=== PATIENT | female | born 1940 | race Caucasian/White ===

== ENCOUNTER 2017-06-18 21:39 | Emergency (ER) | payer MEDICARE, BC ==
[2017-06-18] MEDS ORDERED: Sodium Chloride 0.9% 10 ML Syringe FLUSH PRN (22:22)
[2017-06-18] MEDS ORDERED: Lactated Ringers 1,000 ML IV ONE (22:40)
[2017-06-18] MEDS ORDERED: Prochlorperazine 10 MG/2 ML SDV IVPUSH ONE (22:41)
[2017-06-18] MEDS ORDERED: Ketorolac 30 MG/ML SDV IVPUSH ONE (22:41)
[2017-06-18] MEDS ORDERED: diphenhydrAMINE 50 MG/ML SDV IVPUSH ONE (22:42)
--- NOTE | 2017-06-18 22:49 | EDM.PDOC ---
ED HPI GENERAL MEDICAL PROBLEM - General Chief Complaint: Respiratory Problem Stated Complaint: VOMITING / NAUSEA / FEVER / COUGH Time Seen by Provider: 06/18/17 22:35 Source of Information: Reports: Patient, Old Records, RN History Limitations: Reports: No Limitations - History of Present Illness INITIAL COMMENTS - FREE TEXT/NARRATIVE: 77 yo female developed a low grade fever, body aches, and a slightly productive cough yesterday. Today in addition she developed a migraine. She took Imitrex without relief of the migraine. Presents for both of these issues. Says her BP goes up when she has a migraine, and it is normally around 120 systolic as recent as 2 weeks ago. Onset: Gradual Onset Date: 06/17/17 Duration: Hour(s): Location: Reports: Head, Chest, Generalized Quality: Reports: Ache Severity: Moderate Improves with: Reports: None Worsens with: Reports: None Context: Reports: Other (Hx of migraines. Had a flu vaccine. Unknown exposures. ) Associated Symptoms: Reports: Cough, Fever/Chills, Headaches, Other (body aches) . 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 (see below) (Imitrex without relief.) Generalized Pain Score (Numeric/FACES): 9 - Related Data Allergies Allergy/AdvReac Type Severity Reaction Status Date / Time No Known Allergies Allergy Verified 06/18/17 22:19 Home Meds: Home Meds Acetaminophen [Tylenol 8 Hour] 650 mg PO ASDIRECTED 02/12/13 [History] Cyclobenzaprine [Flexeril] 10 mg PO BEDTIME 06/03/16 [History] Omeprazole 20 mg PO DAILY 06/03/16 [History] Propranolol HCl [Inderal LA] 60 mg PO DAILY 06/03/16 [History] SUMAtriptan [Imitrex] 50 mg PO ASDIRECTED PRN 06/03/16 [History] Sertraline [Zoloft] 100 mg PO DAILY 06/03/16 [History] atorvaSTATin [Lipitor] 20 mg PO BEDTIME 06/03/16 [History] rOPINIRole [Requip] 1 mg PO BEDTIME 06/18/17 [History] Oseltamivir [Tamiflu] 75 mg PO BID #10 cap 06/19/17 [Rx] Past Medical History HEENT History: Reports: Allergic Rhinitis, Impaired Vision Cardiovascular History: Reports: High Cholesterol, Hypertension Respiratory History: Reports: Sleep Apnea Gastrointestinal History: Reports: Colon Polyp, GERD Genitourinary History: Reports: None 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: Musculoskeletal History: Reports: Back Pain, Chronic, Fracture, Fibromyalgia, Osteoarthritis, Osteoporosis Neurological History: Reports: Migraines, TIA Psychiatric History: Reports: Anxiety, Depression, Panic Attack, Other (See Below) Other Psychiatric History: insommnia Oncologic (Cancer) History: Reports: Breast - Infectious Disease History Infectious Disease History: Reports: C-Difficile, Measles, Shingles - Past Surgical History GI Surgical History: Reports: Colonoscopy Female Surgical History: Reports: Breast Biopsy, Mastectomy Neurological Surgical History: Reports: None Musculoskeletal Surgical History: Reports: Knee Replacement Oncologic Surgical History: Reports: Mastectomy Social & Family History - Tobacco Use Smoking Status *Q: Never Smoker Second Hand Smoke Exposure: No - Caffeine Use Caffeine Use: Reports: Coffee - Alcohol Use Days Per Week of Alcohol Use: 4 Number of Drinks Per Day: 1 Total Drinks Per Week: 4 - Recreational Drug Use Recreational Drug Use: No ED ROS GENERAL - Review of Systems Review Of Systems: See Below Constitutional: Reports: Fever, Malaise, Fatigue HEENT: Reports: Rhinitis (mild). Denies: Throat Pain Respiratory: Reports: Cough, Sputum. Denies: Shortness of Breath, Wheezing, Pleuritic Chest Pain, Hemoptysis Cardiovascular: Reports: No Symptoms Endocrine: Reports: No Symptoms GI/Abdominal: Reports: No Symptoms : Reports: No Symptoms Musculoskeletal: Reports: Muscle Pain (diffusely) Skin: Reports: No Symptoms Neurological: Reports: No Symptoms Psychiatric: Reports: No Symptoms ED EXAM, GENERAL - Physical Exam Exam: See Below Exam Limited By: No Limitations General Appearance: Alert, WD/WN, No Apparent Distress Eye Exam: Bilateral Eye: Normal Inspection Ears: Normal External Exam, Normal Canal, Hearing Grossly Normal, Normal TMs Ear Exam: Bilateral Ear: Auricle Normal, Canal Normal, TM normal Nose: Normal Inspection, Normal Mucosa, No Blood Throat/Mouth: Normal Inspection, Normal Lips, Normal Oropharynx, Normal Voice, No Airway Compromise Head: Atraumatic, Normocephalic Neck: Normal Inspection, Supple, Non-Tender Respiratory/Chest: No Respiratory Distress, No Accessory Muscle Use, Rhonchi ( scattered). No: Decreased Breath Sounds, Wheezing, Pleural Rub, Accessory Muscle Use Cardiovascular: Regular Rate, Rhythm, No Edema GI/Abdominal: Normal Bowel Sounds, Soft, Non-Tender, No Distention Back Exam: Normal Inspection. No: CVA Tenderness (R), CVA Tenderness (L) Extremities: Normal Inspection, Normal Range of Motion, Non-Tender, No Pedal Edema Neurological: Alert, Oriented, CN II-XII Intact, Normal Cognition, No Motor/ Sensory Deficits Psychiatric: Normal Affect, Normal Mood Skin Exam: Warm, Dry, Intact, Normal Color, No Rash Lymphatic: No Adenopathy EKG INTERPRETATION EKG Date: 06/18/17 Time: 22:25 Rhythm: NSR Rate (Beats/Min): 104 [place]: Normal P-Wave: Present QRS: RBBB ST-T: Normal QT: Normal Comparison: NA - No Prior EKG Course - Vital Signs Text/Narrative:: For her migraine she was given LR 1000 ml IV, Compazine 10 mg IV, Toradol 15 mg IV, and diphenhydramine 25 mg IV Last Recorded V/S: Last Vital Signs Temp 37.5 C 06/18/17 22:50 Pulse 92 06/19/17 00:18 Resp 16 06/19/17 00:18 BP 172/95 H 06/19/17 00:18 Pulse Ox 92 L 06/19/17 00:18 - Orders/Labs/Meds Orders: Active Orders 24 hr Category Date Time Status Cardiac Monitoring [RC] .As Directed Care 06/18/17 22:22 Active EKG Documentation Completion [RC] ASDIRECTED Care 06/18/17 22:22 Active Chest 2V [CR] Stat Exams 06/18/17 23:26 Taken Sodium Chloride 0.9% [Saline Flush] Med 06/18/17 22:22 Active 10 ml FLUSH ASDIRECTED PRN Saline Lock Insert [OM.PC] Routine Oth 06/18/17 22:22 Ordered EKG 12 Lead [EK] Routine Ther 06/18/17 22:22 Ordered Medication Orders Sodium Chloride (Saline Flush) 10 ml FLUSH ASDIRECTED PRN PRN Reason: Keep Vein Open Last Admin: 06/18/17 22:59 Dose: 10 ml Labs: Laboratory Tests 06/18/17 06/18/17 06/19/17 Range/Units 22:42 22:42 00:15 WBC 5.3 (4.5-11.0) K/uL RBC 4.31 (3.30-5.50) M/uL Hgb 12.6 (12.0-15.0) g/dL Hct 37.5 (36.0-48.0) % MCV 87 (80-98) fL MCH 29 (27-31) pg MCHC 34 (32-36) % Plt Count 160 (150-400) K/uL Lactic Acid 1.1 (0.4-2.0) mmol/L C-Reactive Protein 10.31 H (0.0-0.3) mg/dL Meds: Medications Generic Name Dose Route Start Last Admin Trade Name Freq PRN Reason Stop Dose Admin Sodium Chloride 10 ml 06/18/17 22:22 06/18/17 22:59 Saline Flush FLUSH 10 ml ASDIRECTED PRN Administration Keep Vein Open Discontinued Medications Generic Name Dose Route Start Last Admin Trade Name Freq PRN Reason Stop Dose Admin Diphenhydramine HCl 25 mg 06/18/17 22:42 06/18/17 23:04 Benadryl IVPUSH 06/18/17 22:43 25 mg ONETIME ONE Administration Lactated Ringer's 1,000 mls @ 1,000 mls/hr 06/18/17 22:40 06/18/17 22:58 Ringers, Lactated IV 06/18/17 23:39 1,000 mls/hr BOLUS ONE Administration Ketorolac Tromethamine 15 mg 06/18/17 22:41 06/18/17 23:07 Toradol IVPUSH 06/18/17 22:42 15 mg ONETIME ONE Administration Oseltamivir Phosphate 75 mg 06/18/17 23:23 06/18/17 23:29 Tamiflu PO 06/18/17 23:24 75 mg ONETIME ONE Administration Prochlorperazine Edisylate 10 mg 06/18/17 22:41 06/18/17 23:00 Compazine IVPUSH 06/18/17 22:42 10 mg ONETIME ONE Administration - Radiology Interpretation Free Text/Narrative:: CXR-? atelectasis L base Departure - Departure Time of Disposition: 00:39 Disposition: Home, Self-Care 01 Condition: Fair Clinical Impression: Influenza HTN (hypertension) Qualifiers: Hypertension type: unspecified Qualified Code(s): I10 - Essential (primary) hypertension - Discharge Information Prescriptions: Oseltamivir [Tamiflu] 75 mg PO BID #10 cap Referrals: Rosemary Melgar PA [Primary Care Provider] - Forms: ED Department Discharge Additional Instructions: Take Tamiflu every 12 hrs until gone. Take acetaminophen every 4-6 hrs for pain or fever control. Drink ample fluids and rest. Recheck with your doctor or here if not improving or worse. You will need a BP check very soon due to hypertension identified tonight also. - My Orders Last 24 Hours: My Active Orders 06/18/17 22:22 Cardiac Monitoring [RC] .As Directed EKG Documentation Completion [RC] ASDIRECTED Sodium Chloride 0.9% [Saline Flush] 10 ml FLUSH ASDIRECTED PRN Saline Lock Insert [OM.PC] Routine EKG 12 Lead [EK] Routine 06/18/17 23:26 Chest 2V [CR] Stat - Assessment/Plan Last 24 Hours: My Active Orders 06/18/17 22:22 Cardiac Monitoring [RC] .As Directed EKG Documentation Completion [RC] ASDIRECTED Sodium Chloride 0.9% [Saline Flush] 10 ml FLUSH ASDIRECTED PRN Saline Lock Insert [OM.PC] Routine EKG 12 Lead [EK] Routine 06/18/17 23:26 Chest 2V [CR] Stat
[2017-06-18] MEDS ORDERED: Oseltamivir 75 MG Cap PO ONE (23:23)
[2017-06-19 00:20] VITALS: BP 172/95
--- NOTE | 2017-06-19 11:05 | CR ---
Chest 2V HISTORY: Cough COMPARISON: CT chest 2006. FINDINGS: Left mastectomy changes with surgical clips in the left axilla. There is hyperinflation. Th e cardiac size is upper limits of normal. No dense focal infiltrates. Linear scarring or atelectatic changes at the left lung base.
== END 2017-06-19 00:51 | disposition home or self-care (01) ==
LOC: JP.ED 21:39
DX: J10.1 Influenza due to other identified influenza virus with other respiratory manifestations (principal); I10 Essential (primary) hypertension; G43.909 Migraine, unspecified, not intractable, without status migrainosus; F41.9 Anxiety disorder, unspecified; F32.9 Major depressive disorder, single episode, unspecified; E78.00 Pure hypercholesterolemia, unspecified; Z79.899 Other long term (current) drug therapy
CPT/HCPCS: 36415; 71046; 83605; 85027; 86140; 87804; 93005; 96361; 96374; 96375; 99284; A9270; J0780; J1200; J1885; J7050; J7120; 93010

== ENCOUNTER 2017-06-29 09:57 | Emergency (ER) | payer MEDICARE, BC ==
[2017-06-29 10:34] VITALS: BP 178/85
--- NOTE | 2017-06-29 11:08 | EDM.PDOC ---
ED HPI GENERAL MEDICAL PROBLEM - General Chief Complaint: General Stated Complaint: NAUSEA/MUSCLE ACHES Time Seen by Provider: 06/29/17 10:55 Source of Information: Reports: Patient, Old Records, RN History Limitations: Reports: No Limitations - History of Present Illness INITIAL COMMENTS - FREE TEXT/NARRATIVE: 77 yo female presents with a concern about her HTN. It has been running high lately. Has no new sx's related to the high BP. Has not been to the clinic. 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) - Related Data Allergies Allergy/AdvReac Type Severity Reaction Status Date / Time No Known Allergies Allergy Verified 06/18/17 22:19 Home Meds: Home Meds Cyclobenzaprine [Flexeril] 10 mg PO BEDTIME 06/03/16 [History] Omeprazole 20 mg PO DAILY 06/03/16 [History] Propranolol HCl [Inderal LA] 60 mg PO DAILY 06/03/16 [History] SUMAtriptan [Imitrex] 50 mg PO ASDIRECTED PRN 06/03/16 [History] Sertraline [Zoloft] 100 mg PO DAILY 06/03/16 [History] atorvaSTATin [Lipitor] 20 mg PO BEDTIME 06/03/16 [History] HCTZ/Telmisartan [Micardis HCT 12.5-40 MG] 1 tab PO DAILY #30 tab 06/29/17 [Rx] Past Medical History HEENT History: Reports: Allergic Rhinitis, Impaired Vision Cardiovascular History: Reports: High Cholesterol, Hypertension Respiratory History: Reports: Sleep Apnea Gastrointestinal History: Reports: Colon Polyp, GERD Genitourinary History: Reports: 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: Musculoskeletal History: Reports: Back Pain, Chronic, Fracture, Fibromyalgia, Osteoarthritis, Osteoporosis Neurological History: Reports: Migraines, TIA Psychiatric History: Reports: Anxiety, Depression, Panic Attack, Other (See Below) Other Psychiatric History: insommnia Oncologic (Cancer) History: Reports: Breast - Infectious Disease History Infectious Disease History: Reports: Chicken Pox, Measles, Mumps - Past Surgical History GI Surgical History: Reports: Colonoscopy Female Surgical History: Reports: Breast Biopsy, Mastectomy Neurological Surgical History: Reports: None Musculoskeletal Surgical History: Reports: Knee Replacement Other Musculoskeletal Surgeries/Procedures:: bilateral knee replacement Oncologic Surgical History: Reports: Mastectomy Social & Family History - Tobacco Use Smoking Status *Q: Never Smoker Second Hand Smoke Exposure: No - Caffeine Use Caffeine Use: Reports: Coffee - Alcohol Use Days Per Week of Alcohol Use: 4 Number of Drinks Per Day: 1 Total Drinks Per Week: 4 - Recreational Drug Use Recreational Drug Use: No ED ROS GENERAL - Review of Systems Review Of Systems: See Below Constitutional: Reports: No Symptoms HEENT: Reports: No Symptoms Respiratory: Reports: No Symptoms Cardiovascular: Reports: Blood Pressure Problem GI/Abdominal: Reports: No Symptoms : Reports: No Symptoms Musculoskeletal: Reports: No Symptoms Skin: Reports: No Symptoms Neurological: Reports: No Symptoms ED EXAM, GENERAL - Physical Exam Exam: See Below Exam Limited By: No Limitations General Appearance: Alert, WD/WN, No Apparent Distress Eye Exam: Bilateral Eye: Normal Inspection Ears: Normal External Exam, Normal Canal, Hearing Grossly Normal Ear Exam: Bilateral Ear: Auricle Normal, Canal Normal Nose: Normal Inspection, Normal Mucosa, No Blood Throat/Mouth: Normal Inspection, Normal Lips, Normal Oropharynx, Normal Voice, No Airway Compromise Head: Atraumatic, Normocephalic Neck: Normal Inspection, Supple Respiratory/Chest: No Respiratory Distress, Lungs Clear, Normal Breath Sounds, No Accessory Muscle Use Cardiovascular: Regular Rate, Rhythm, No Edema Neurological: Alert, Oriented, CN II-XII Intact, Normal Cognition, No Motor/ Sensory Deficits Psychiatric: Normal Affect, Normal Mood Skin Exam: Warm, Dry, Intact, Normal Color, No Rash Lymphatic: No Adenopathy Course - Vital Signs Last Recorded V/S: Last Vital Signs Temp 35.9 C 06/29/17 10:33 Pulse 67 06/29/17 10:33 Resp 16 06/29/17 10:33 BP 178/85 H 06/29/17 10:33 Pulse Ox 96 06/29/17 10:33 Orthostatic Blood Pressure [ 178/85 Standing] Orthostatic Blood Pressure [ 176/80 Sitting] Orthostatic Blood Pressure [ 192/90 Supine] Departure - Departure Time of Disposition: 11:12 Disposition: Home, Self-Care 01 Condition: Good Clinical Impression: HTN (hypertension) Qualifiers: Hypertension type: unspecified Qualified Code(s): I10 - Essential (primary) hypertension - Discharge Information Prescriptions: HCTZ/Telmisartan [Micardis HCT 12.5-40 MG] 1 tab PO DAILY #30 tab Referrals: Rosemary Melgar PA [Primary Care Provider] - Forms: ED Department Discharge Additional Instructions: Avoid salt. Take Mircardis/HCT one every morning. Call the clinic to schedule a follow up appt and to find out the name of the medicine you reacted to a year ago.
== END 2017-06-29 11:22 | disposition home or self-care (01) ==
LOC: JP.ED 09:57
DX: I10 Essential (primary) hypertension (principal); E78.00 Pure hypercholesterolemia, unspecified; K21.9 Gastro-esophageal reflux disease without esophagitis; F41.9 Anxiety disorder, unspecified; F32.9 Major depressive disorder, single episode, unspecified; Z79.899 Other long term (current) drug therapy
CPT/HCPCS: 99283

== ENCOUNTER 2019-04-12 06:20 | Day surgery (SDC) | payer MEDICARE, BC ==
[2019-04-12] MEDS ORDERED: Lactated Ringers 1,000 ML IV SCH (06:45)
[2019-04-12] MEDS ORDERED: Midazolam 1 MG/ML 2 ML SDV ONE (07:10)
[2019-04-12] MEDS ORDERED: fentaNYL 100 MCG/2 ML SDV ONE (07:10)
[2019-04-12] MEDS ORDERED: Propofol 200 MG/20 ML SDV ONE (07:11)
[2019-04-12 08:52] VITALS: BP 145/62; PULSE 75
--- NOTE | 2019-04-12 15:23 | OR ---
DATE OF PROCEDURE: 04/12/2019 SURGEON: Kelechi Camilo MD PREOPERATIVE DIAGNOSIS: History of colon polyps. POSTOPERATIVE DIAGNOSES: Diverticulosis, 2 small colon polyps 40 cm in right colon, history of colon polyps. PROCEDURE PERFORMED: Colonoscopy to the cecum with biopsy resection of small polyps at 40 cm in right colon. ANESTHESIA: IV anesthesia with monitored anesthesia care. INDICATION: This 79-year-old white female is referred for a colonoscopy because of a history of colon polyps. Her last colonoscopic exam was 3 years ago. I counseled her for the procedure, including risks and alternatives, and she gave her informed consent to proceed. DESCRIPTION OF PROCEDURE: The patient was placed in the left lateral decubitus position. IV anesthesia was administered by the Anesthesia Service. Time-out was held. A rectal exam was performed, which was unremarkable. The flexible video Olympus colonoscope was introduced through her anus, up her rectum, out her colon all the way to the cecum. En route, at 40 cm from the anal verge, we encountered a small polyp which was removed with a few bites of biopsy forceps. We also encountered multiple sigmoid and left colon diverticula. There was no bleeding or inflammation associated with any of them. In the right colon, we saw a small polyp which was removed with a few bites of biopsy forceps. Once the cecum was reached, the scope was slowly withdrawn examining the mucosa throughout. No additional mucosal abnormalities were noted. The scope was retroflexed in the rectum with the distal rectum appearing unremarkable. The scope was straightened and removed. She tolerated the procedure well. Kelechi Camilo MD /[id number]
== END 2019-04-12 09:10 | disposition home or self-care (01) ==
LOC: JP.SDS 06:20
PROVIDERS: ATTEND Surgery
DX: Z12.11 Encounter for screening for malignant neoplasm of colon (principal); K57.30 Diverticulosis of large intestine without perforation or abscess without bleeding; D12.5 Benign neoplasm of sigmoid colon; D12.2 Benign neoplasm of ascending colon; K21.9 Gastro-esophageal reflux disease without esophagitis; G47.33 Obstructive sleep apnea (adult) (pediatric); E78.5 Hyperlipidemia, unspecified; I10 Essential (primary) hypertension; Z86.010 Personal history of colon polyps; Z99.89 Dependence on other enabling machines and devices
CPT/HCPCS: J2250; J2704; J3010; J7120

== ENCOUNTER 2021-03-02 11:47 | Emergency (ER) | payer MEDICARE, BC ==
[2021-03-02] MEDS ORDERED: Lactated Ringers 1,000 ML IV ONE (12:30)
[2021-03-02] MEDS ORDERED: Prochlorperazine 10 MG/2 ML SDV IVPUSH ONE (12:31)
[2021-03-02] MEDS ORDERED: diphenhydrAMINE 50 MG/ML SDV IVPUSH ONE (12:31)
[2021-03-02] MEDS ORDERED: Ketorolac 30 MG/ML SDV IVPUSH ONE (12:31)
--- NOTE | 2021-03-02 12:35 | EDM.PDOC ---
ED HPI GENERAL MEDICAL PROBLEM - General Chief Complaint: Headache Stated Complaint: MIGRAINE Time Seen by Provider: 03/02/21 12:20 Source of Information: Reports: Patient, Old Records, RN History Limitations: Reports: No Limitations - History of Present Illness INITIAL COMMENTS - FREE TEXT/NARRATIVE: 81 yo female presents with what she describes as a migraine that began yester day. She has a pHx of migraine. She has photophobia and nausea. No fever. Is here with her . Tried Imitrex without relief. Onset: Sudden Onset Date: 03/01/21 Duration: Day(s): (1), Constant Location: Reports: Head Quality: Reports: Ache Severity: Severe Improves with: Reports: None Worsens with: Reports: None Context: Reports: Other (see HPI) Associated Symptoms: Reports: Headaches, Nausea/Vomiting, Other (photophobia). 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 (see below) (Imitrex) Headache Pain Score (Numeric/FACES): 9 - Related Data Allergies Allergy/AdvReac Type Severity Reaction Status Date / Time No Known Allergies Allergy Verified 03/02/21 12:14 Home Meds: Home Meds Propranolol HCl [Inderal LA] 60 mg PO DAILY 06/03/16 [History] SUMAtriptan [Imitrex] 50 mg PO ASDIRECTED PRN 06/03/16 [History] Sertraline [Zoloft] 100 mg PO DAILY 06/03/16 [History] atorvaSTATin [Lipitor] 20 mg PO BEDTIME 06/03/16 [History] Acetaminophen [Tylenol] 650 mg PO Q4HR PRN 04/08/19 [History] Gabapentin [Neurontin] 300 mg PO BID 04/08/19 [History] Losartan [Cozaar] 25 mg PO DAILY 04/08/19 [History] Omeprazole 20 mg PO DAILY 03/02/21 [History] Past Medical History HEENT History: Reports: Allergic Rhinitis, Impaired Vision Cardiovascular History: Reports: High Cholesterol, Hypertension Respiratory History: Reports: Sleep Apnea Gastrointestinal History: Reports: Colon Polyp, GERD Genitourinary History: Reports: None 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: Musculoskeletal History: Reports: Back Pain, Chronic, Fracture, Fibromyalgia, Osteoarthritis, Osteoporosis Other Musculoskeletal History: hip replacement Neurological History: Reports: Migraines, TIA Psychiatric History: Reports: Anxiety, Depression, Panic Attack, Other (See Below) Other Psychiatric History: insommnia Oncologic (Cancer) History: Reports: Breast - Infectious Disease History Infectious Disease History: Reports: Chicken Pox - Past Surgical History HEENT Surgical History: Reports: Adenoidectomy, Tonsillectomy Cardiovascular Surgical History: Reports: None GI Surgical History: Reports: Colonoscopy Female Surgical History: Reports: Breast Biopsy, Mastectomy Neurological Surgical History: Reports: Scoliosis, Other (See Below) Other Neurological Surgeries/Procedures: back surgery "corrected curvature, I h ave screws and cages" Musculoskeletal Surgical History: Reports: Knee Replacement Other Musculoskeletal Surgeries/Procedures:: bilateral knee replacement Oncologic Surgical History: Reports: Mastectomy Social & Family History - Tobacco Use Tobacco Use Status *Q: Never Tobacco User - Caffeine Use Caffeine Use: Reports: Coffee - Alcohol Use Days Per Week of Alcohol Use: 2 Number of Drinks Per Day: 1 Total Drinks Per Week: 2 - Recreational Drug Use Recreational Drug Use: No ED ROS GENERAL - Review of Systems Review Of Systems: See Below Constitutional: Reports: No Symptoms HEENT: Reports: Other (light sensitive) Respiratory: Reports: No Symptoms Cardiovascular: Reports: No Symptoms GI/Abdominal: Reports: Nausea : Reports: No Symptoms Musculoskeletal: Reports: No Symptoms Skin: Reports: No Symptoms Neurological: Reports: Headache - Physical Exam Exam: See Below Exam Limited By: No Limitations General Appearance: Alert, WD/WN, No Apparent Distress Eye Exam: Bilateral Eye: Normal Inspection Ears: Normal External Exam, Normal Canal, Hearing Grossly Normal Nose: Normal Inspection, No Blood Throat/Mouth: Normal Inspection, Normal Lips, Normal Oropharynx, Normal Voice, No Airway Compromise Neck: Normal Inspection Respiratory/Chest: No Respiratory Distress, Lungs Clear, Normal Breath Sounds, No Accessory Muscle Use Cardiovascular: Regular Rate, Rhythm, No Edema GI/Abdominal: Soft, Non-Tender, No Distention Neuro Exam (Abbreviated): Alert, Oriented, CN II-XII Intact, Normal Cognition, No Motor/Sensory Deficits Back Exam: Normal Inspection. No: CVA Tenderness (R), CVA Tenderness (L) Extremities: Normal Inspection, Normal Range of Motion, Non-Tender, No Pedal Edema Psychiatric: Normal Affect, Normal Mood Skin Exam: Warm, Dry, Intact, Normal Color, No Rash Course - Vital Signs Last Recorded V/S: Last Vital Signs Temp 35.2 C L 03/02/21 12:22 Pulse 97 03/02/21 13:35 Resp 16 03/02/21 12:22 BP 195/129 H 03/02/21 13:35 Pulse Ox 97 03/02/21 12:36 - Orders/Labs/Meds Meds: Medications Discontinued Medications Generic Name Dose Route Start Last Admin Trade Name Peg PRN Reason Stop Dose Admin Diphenhydramine HCl 25 mg 03/02/21 12:31 03/02/21 13:01 Diphenhydramine 50 Mg/Ml Sdv IVPUSH 03/02/21 12:32 25 mg ONETIME ONE Administration Lactated Ringer's 1,000 mls @ 1,000 mls/hr 03/02/21 12:30 03/02/21 12:53 Ringers, Lactated IV 03/02/21 13:29 1,000 mls/hr BOLUS ONE Administration Ketorolac Tromethamine 30 mg 03/02/21 12:31 03/02/21 13:00 Ketorolac 30 Mg/Ml Sdv IVPUSH 03/02/21 12:32 30 mg ONETIME ONE Administration Prochlorperazine Edisylate 10 mg 03/02/21 12:31 03/02/21 12:58 Prochlorperazine 10 Mg/2 Ml Sdv IVPUSH 03/02/21 12:32 10 mg ONETIME ONE Administration - Re-Assessments/Exams Free Text/Narrative Re-Assessment/Exam: 03/02/21 13:26 [place] partially gone, nausea gone now. Free Text/Narrative Re-Assessment/Exam: 03/02/21 13:54 DICKERSON mostly gone, OK with discharge Departure - Departure Time of Disposition: 14:00 Disposition: Home, Self-Care 01 Condition: Good Clinical Impression: Migraine Qualifiers: Migraine type: without aura Status migrainosus presence: without status migrainosus Intractability: not intractable Qualified Code(s): G43.009 - Migraine without aura, not intractable, without status migrainosus - Discharge Information *PRESCRIPTION DRUG MONITORING PROGRAM REVIEWED*: Not Applicable *COPY OF PRESCRIPTION DRUG MONITORING REPORT IN PATIENT GARY: Not Applicable Instructions: Migraine Headache, [id number] Referrals: Rosemary Melgar PA [Primary Care Provider] - Forms: ED Department Discharge Additional Instructions: Go home to sleep. No driving today. Continue your usual meds. Return as needed. Sepsis Event Note (ED) - Evaluation Sepsis Screening Result: No Definite Risk - Focused Exam Vital Signs: Vital Signs Temp Pulse Resp BP Pulse Ox 03/02/21 13:35 97 195/129 H 03/02/21 12:36 91 196/105 H 97 03/02/21 12:22 35.2 C L 104 H 16 230/114 H 98 03/02/21 12:08 35.2 C L 104 H 16 230/114 H 98
[2021-03-02 14:14] VITALS: BP 220/97; PULSE 90
== END 2021-03-02 14:24 | disposition home or self-care (01) ==
LOC: JP.ED 11:47
DX: G43.009 Migraine without aura, not intractable, without status migrainosus (principal); E78.00 Pure hypercholesterolemia, unspecified; I10 Essential (primary) hypertension; K21.9 Gastro-esophageal reflux disease without esophagitis; Z79.899 Other long term (current) drug therapy; Z86.73 Personal history of transient ischemic attack (TIA), and cerebral infarction without residual deficits
CPT/HCPCS: 96374; 96375; 99283; J0780; J1200; J1885; J7120

== ENCOUNTER 2021-05-31 01:20 | Emergency (ER) | payer MEDICARE, BC ==
--- NOTE | 2021-05-31 01:26 | EDM.PDOC ---
ED HPI GENERAL MEDICAL PROBLEM - General Chief Complaint: Lower Extremity Injury/Pain Stated Complaint: Right hip pain Time Seen by Provider: 05/31/21 01:21 Source of Information: Reports: Patient, EMS History Limitations: Reports: No Limitations - History of Present Illness INITIAL COMMENTS - FREE TEXT/NARRATIVE: Chandrika is a 81-year-old female presenting to the ED via [facility] from her home after she got up to go to the bathroom and fell. Patient is complaining of severe right hip pain. She does have a history of a right hip arthroplasty done in June of this year. Patient was having difficulty getting back up and when EMS arrived she was seated on a chair. She complains of pain with any weightbearing on the right leg. Her pain is primarily just below the right hip. There is no significant rotation or shortening of the leg. She has good distal sensation, pulses, and color. She denies any other injury. EMS did give the patient 100 mcg of fentanyl IM for her pain. Right Hip Pain Score (Numeric/FACES): 7 - Related Data Allergies Allergy/AdvReac Type Severity Reaction Status Date / Time No Known Allergies Allergy Verified 05/31/21 01:27 Home Meds: Home Meds Propranolol HCl [Inderal LA] 60 mg PO DAILY 06/03/16 [History] SUMAtriptan [Imitrex] 50 mg PO ASDIRECTED PRN 06/03/16 [History] Sertraline [Zoloft] 100 mg PO DAILY 06/03/16 [History] atorvaSTATin [Lipitor] 20 mg PO BEDTIME 06/03/16 [History] Acetaminophen [Tylenol] 650 mg PO Q4HR PRN 04/08/19 [History] Gabapentin [Neurontin] 300 mg PO BID 04/08/19 [History] Losartan [Cozaar] 25 mg PO DAILY 04/08/19 [History] Omeprazole 20 mg PO DAILY 03/02/21 [History] tiZANidine HCl [Tizanidine HCl] 4 mg PO ASDIRECTED 05/31/21 [History] Past Medical History HEENT History: Reports: Allergic Rhinitis, Impaired Vision Cardiovascular History: Reports: High Cholesterol, Hypertension Respiratory History: Reports: Sleep Apnea Gastrointestinal History: Reports: Colon Polyp, GERD Genitourinary History: Reports: None [employer]OR OF REVENUE History: Reports: Musculoskeletal History: Reports: Back Pain, Chronic, Fracture, Fibromyalgia, Osteoarthritis, Osteoporosis Other Musculoskeletal History: hip replacement Neurological History: Reports: Migraines, TIA Psychiatric History: Reports: Anxiety, Depression, Panic Attack, Other (See Below) Other Psychiatric History: insommnia Oncologic (Cancer) History: Reports: Breast - Infectious Disease History Infectious Disease History: Reports: Chicken Pox - Past Surgical History HEENT Surgical History: Reports: Adenoidectomy, Tonsillectomy Cardiovascular Surgical History: Reports: None GI Surgical History: Reports: Colonoscopy Female Surgical History: Reports: Breast Biopsy, Mastectomy Neurological Surgical History: Reports: Scoliosis, Other (See Below) Other Neurological Surgeries/Procedures: back surgery "corrected curvature, I have screws and cages" Musculoskeletal Surgical History: Reports: Knee Replacement Other Musculoskeletal Surgeries/Procedures:: bilateral knee replacement Oncologic Surgical History: Reports: Mastectomy Social & Family History - Caffeine Use Caffeine Use: Reports: Coffee Review of Systems - Review of Systems Review Of Systems: See Below Constitutional: Reports: No Symptoms Eyes: Reports: No Symptoms Ears: Reports: No Symptoms Nose: Reports: No Symptoms Mouth/Throat: Reports: No Symptoms Respiratory: Reports: No Symptoms Cardiovascular: Reports: No Symptoms GI/Abdominal: Reports: No Symptoms Genitourinary: Reports: No Symptoms Musculoskeletal: Reports: Joint Pain (Right hip pain) Skin: Reports: No Symptoms Neurological: Reports: No Symptoms Psychiatric: Reports: No Symptoms ED EXAM, GENERAL - Physical Exam Exam: See Below Exam Limited By: No Limitations General Appearance: Alert, Anxious, Moderate Distress Eye Exam: Bilateral Eye: EOMI, PERRL Respiratory/Chest: No Respiratory Distress, Lungs Clear, Normal Breath Sounds Cardiovascular: Normal Peripheral Pulses, Regular Rate, Rhythm, No Murmur Peripheral Pulses: 2+: Posterior Tibial (L), Posterior Tibial (R) Extremities: Limited Range of Motion (Pain with movement of the right hip), Other (Pain with palpation over the greater trochanteric bursa, anterior upper thigh, and right buttock.) Neurological: Alert, Oriented, Normal Cognition, No Motor/Sensory Deficits Psychiatric: Normal Affect, Anxious Skin Exam: Warm, Dry, Intact, Normal Color Course - Vital Signs Last Recorded V/S: Last Vital Signs Temp 36.5 C 05/31/21 01:25 Pulse 63 05/31/21 02:44 Resp 14 05/31/21 03:01 BP 192/80 H 05/31/21 02:44 Pulse Ox 97 05/31/21 03:01 - Orders/Labs/Meds Orders: Active Orders 24 hr Category Date Time Status Hip Min 2V or 3V w Pelvis Rt [CR] Stat Exams 05/31/21 01:21 Taken Sodium Chloride 0.9% [Saline Flush] Med 05/31/21 02:24 Active 10 ml FLUSH ASDIRECTED PRN Saline Lock Insert [OM.PC] Routine Oth 05/31/21 02:24 Ordered Medication Orders Sodium Chloride (Sodium Chloride 0.9% 10 Ml Syringe) 10 ml FLUSH ASDIRECTED PRN PRN Reason: Keep Vein Open Last Admin: 05/31/21 02:39 Dose: 10 ml Documented by: LINUS Labs: Laboratory Tests 05/31/21 05/31/21 05/31/21 Range/Units 02:30 02:30 02:30 WBC 7.8 (4.5-11.0) K/uL RBC 4.09 (3.30-5.50) M/uL Hgb 12.0 (12.0-15.0) g/dL Hct 36.3 (36.0-48.0) % MCV 89 (80-98) fL MCH 29 (27-31) pg MCHC 33 (32-36) % Plt Count 217 (150-400) K/uL Neut % (Auto) 75.8 H (36-66) % Lymph % (Auto) 11.4 L (24-44) % Sac % (Auto) 9.0 H (2-6) % Eos % (Auto) 3.4 (2-4) % Baso % (Auto) 0.4 (0-1) % PT 10.3 (9.2-10.6) sec INR 1.0 APTT 23.1 (21.4-31.8) sec Sodium 139 L (140-148) mmol/L Potassium 4.1 (3.6-5.2) mmol/L Chloride 101 (100-108) mmol/L Carbon Dioxide 28 (21-32) mmol/L Anion Gap 14.1 H (5.0-14.0) mmol/L BUN 18 (7-18) mg/dL Creatinine 0.9 (0.6-1.0) mg/dL Est Cr Clr Drug Dosing 41.01 mL/min Estimated GFR (MDRD) > 60 (>60) Glucose 128 H (74-106) mg/dL Calcium 8.5 (8.5-10.1) mg/dL SARS CoV-2 RNA Rapid JUDY 05/31/21 Range/Units 02:33 WBC (4.5-11.0) K/uL RBC (3.30-5.50) M/uL Hgb (12.0-15.0) g/dL Hct (36.0-48.0) % MCV (80-98) fL MCH (27-31) pg MCHC (32-36) % Plt Count (150-400) K/uL Neut % (Auto) (36-66) % Lymph % (Auto) (24-44) % Sac % (Auto) (2-6) % Eos % (Auto) (2-4) % Baso % (Auto) (0-1) % PT (9.2-10.6) sec INR APTT (21.4-31.8) sec Sodium (140-148) mmol/L Potassium (3.6-5.2) mmol/L Chloride (100-108) mmol/L Carbon Dioxide (21-32) mmol/L Anion Gap (5.0-14.0) mmol/L BUN (7-18) mg/dL Creatinine (0.6-1.0) mg/dL Est Cr Clr Drug Dosing mL/min Estimated GFR (MDRD) (>60) Glucose (74-106) mg/dL Calcium (8.5-10.1) mg/dL SARS CoV-2 RNA Rapid JUDY Negative Meds: Medications Generic Name Dose Route Start Last Admin Trade Name Freq PRN Reason Stop Dose Admin Sodium Chloride 10 ml 05/31/21 02:24 05/31/21 02:39 Sodium Chloride 0.9% 10 Ml Syringe FLUSH 10 ml ASDIRECTED PRN Administration Keep Vein Open Discontinued Medications Generic Name Dose Route Start Last Admin Trade Name Freq PRN Reason Stop Dose Admin Hydromorphone HCl 0.5 mg 05/31/21 02:24 05/31/21 02:39 Hydromorphone 0.5 Mg/0.5 Ml Syringe IVPUSH 05/31/21 02:25 0.5 mg ONETIME ONE Administration - Radiology Interpretation Free Text/Narrative:: I reviewed the three-view pelvis and right hip x-ray demonstrating a displaced and angulated periprosthetic proximal femur fracture. - Re-Assessments/Exams Free Text/Narrative Re-Assessment/Exam: 05/31/21 02:10 the patient had her hip replacement done by Dr. Gacría through [facility]. I did contact orthopedics at [facility] in [place] and discussed the case with KELLY Cook who will try to get a hold of Dr. García to discuss what to do. The patient is still having significant pain through 100 mcg of fentanyl so we will likely give her Dilaudid 0.5 mg. We have no beds available here or to be able to admit her. 05/31/21 02:31 again with Gabe Melvin who accepts the patient in transfer as a direct admission at [facility] in [place]. We will get a rapid Covid test which I will notify him the results of and we will also send her CBC and basic metabolic profile, PT and PTT. 05/31/21 03:03 the CBC shows a normal leukocyte count of 7.8, hemoglobin of 12.0 and platelet count of 217,000. Her basic metabolic profile shows a sodium 139, potassium 4.1, chloride of 101, bicarbonate of 28, BUN of 18 with a creatinine of 0.9, glucose of 128 and calcium of 8.5. She is Covid negative. The PT/INR is 10.3/1.0 and the PTT is 23.1. Gabe Melvin was notified of the negative Covid status. We will arrange for transfer of the patient to [facility] in [place]. Departure - Departure Time of Disposition: 02:37 Disposition: DC/Tfer to Acute Hospital 02 Clinical Impression: Periprosthetic fracture around internal prosthetic right hip joint, initial encounter - Discharge Information Referrals: PCP,None [Primary Care Provider] - Forms: ED Department Discharge Sepsis Event Note (ED) - Focused Exam Vital Signs: Vital Signs Temp Pulse Resp BP Pulse Ox 05/31/21 03:01 14 97 05/31/21 02:44 63 14 192/80 H 90 L 05/31/21 02:33 60 16 220/96 H 97 05/31/21 01:37 54 L 18 205/87 H 96 05/31/21 01:25 36.5 C 54 L 16 225/94 H 97 - Problem List & Annotations (1) Periprosthetic fracture around internal prosthetic right hip joint, initial encounter SNOMED Code(s): 580278654 Code(s): M97.01XA - PERIPROSTH FRACTURE AROUND INTERNAL PROSTH R HIP JT, INIT Status: Acute Priority: Medium Current Visit: Yes - Problem List Review Problem List Initiated/Reviewed/Updated: Yes - My Orders Last 24 Hours: My Active Orders 05/31/21 01:21 Hip Min 2V or 3V w Pelvis Rt [CR] Stat 05/31/21 02:24 Sodium Chloride 0.9% [Saline Flush] 10 ml FLUSH ASDIRECTED PRN Saline Lock Insert [OM.PC] Routine - Assessment/Plan Last 24 Hours: My Active Orders 05/31/21 01:21 Hip Min 2V or 3V w Pelvis Rt [CR] Stat 05/31/21 02:24 Sodium Chloride 0.9% [Saline Flush] 10 ml FLUSH ASDIRECTED PRN Saline Lock Insert [OM.PC] Routine
[2021-05-31] MEDS ORDERED: Sodium Chloride 0.9% 10 ML Syringe FLUSH PRN (02:24)
[2021-05-31] MEDS ORDERED: HYDROmorphone 0.5 MG/0.5 ML Syringe IVPUSH ONE (02:24)
[2021-05-31] MEDS ORDERED: amLODIPine 5 MG Tab PO ONE (03:24)
[2021-05-31 03:32] VITALS: BP 207/88
[2021-05-31 03:35] VITALS: PULSE 62
--- NOTE | 2021-05-31 08:56 | CR ---
Hip Min 2V or 3V w Pelvis Rt CLINICAL HISTORY: Pain, fall FINDINGS: Patient has a total right hip arthroplasty. There is a fracture through the proximal femoral shaft near the tip of the femoral component. Pelvis appears intact. There has been lumbosacral and sacral ilial fixation. There are moderate osteoarthritic changes in the left hip IMPRESSION: Fracture proximal femoral shaft near tip of arthroplasty
== END 2021-05-31 03:50 ==
LOC: JP.ED 01:20
DX: M97.01XA Periprosthetic fracture around internal prosthetic right hip joint, initial encounter (principal); E78.00 Pure hypercholesterolemia, unspecified; I10 Essential (primary) hypertension; K21.9 Gastro-esophageal reflux disease without esophagitis; M19.90 Unspecified osteoarthritis, unspecified site; Z96.641 Presence of right artificial hip joint; Z79.899 Other long term (current) drug therapy; Z20.822 Contact with and (suspected) exposure to COVID-19; W18.30XA Fall on same level, unspecified, initial encounter; Y92.002 Bathroom of unspecified non-institutional (private) residence as the place of occurrence of the external cause
CPT/HCPCS: 36415; 73502; 80048; 85025; 85610; 85730; 96374; 99285; A9270; J1170; U0002

== ENCOUNTER 2021-06-25 09:13 | Emergency (ER) | payer MEDICARE, BC ==
[2021-06-25] MEDS ORDERED: Labetalol 100 MG/20 ML MDV IVPUSH PRN (09:53)
[2021-06-25] MEDS ORDERED: Promethazine 12.5 MG in Sodium Chloride 0.9% 50 ML IV ONE (10:06)
[2021-06-25] MEDS ORDERED: Labetalol 20 MG/4 ML Syringe IVPUSH PRN (10:35)
[2021-06-25] MEDS ORDERED: Labetalol 20 MG/4 ML Syringe IVPUSH ONE (15:24)
[2021-06-25] MEDS ORDERED: Sodium Chloride 0.9% 500 ML IV ONE (15:26)
[2021-06-25] MEDS ORDERED: hydrALAZINE 25 MG Tab PO ONE (15:30)
[2021-06-25] MEDS ORDERED: Ondansetron 4 MG/2 ML SDV IVPUSH ONE (15:40)
[2021-06-25 17:22] VITALS: BP 162/81; PULSE 90
== END 2021-06-25 18:11 | disposition home or self-care (01) ==
LOC: JP.ED 09:13
DX: G43.909 Migraine, unspecified, not intractable, without status migrainosus (principal); I10 Essential (primary) hypertension; K21.9 Gastro-esophageal reflux disease without esophagitis; Z79.899 Other long term (current) drug therapy; Z86.73 Personal history of transient ischemic attack (TIA), and cerebral infarction without residual deficits
CPT/HCPCS: 36415; 70450; 80053; 85025; 96374; 96375; 96376; 99284; 99285; A9270; J2405; J2550; J3490; J7040

== ENCOUNTER 2021-06-29 10:08 | Emergency (ER) | payer MEDICARE, BC ==
[2021-06-29] MEDS ORDERED: Labetalol 20 MG/4 ML Syringe IVPUSH ONE ×2 (11:01→12:28)
[2021-06-29] MEDS ORDERED: hydrALAZINE 25 MG Tab PO ONE (11:03)
[2021-06-29 12:25] LABS: CORONAVIRUS COVID-19 NAA NEGATIVE (NEGATIVE)
[2021-06-29] MEDS ORDERED: hydrALAZINE 10 MG Tab PO ONE ×2 (12:29→13:25)
[2021-06-29] MEDS ORDERED: LORazepam 0.5 MG Tab PO ONE (13:25)
[2021-06-29 14:25] VITALS: BP 178/80; PULSE 76
== END 2021-06-29 14:37 | disposition home or self-care (01) ==
LOC: JP.ED 10:08
DX: I10 Essential (primary) hypertension (principal); E78.00 Pure hypercholesterolemia, unspecified; K21.9 Gastro-esophageal reflux disease without esophagitis; Z86.73 Personal history of transient ischemic attack (TIA), and cerebral infarction without residual deficits; Z79.899 Other long term (current) drug therapy; Z20.822 Contact with and (suspected) exposure to COVID-19
CPT/HCPCS: 0241U; 36415; 80048; 83550; 85025; 96374; 96376; 99283; A9270; J3490